=== PATIENT | female | born 1975 | race Caucasian/White ===

== ENCOUNTER 2018-12-05 01:46 | Observation (INO) ==
[2018-12-05] MEDS ORDERED: LACTATED RINGERS 1,000 ML IV ONE ×2 (02:11→04:18)
[2018-12-05] MEDS ORDERED: ONDANSETRON 4 MG/2 ML VIAL IV ONE (02:21)
--- NOTE | 2018-12-05 02:24 | Emergency Department Note ---
Abdominal Pain HPI - General Chief Complaint: Abdominal Pain Stated Complaint: abd pain Time Seen by Provider: 12/05/18 02:10 Mode of arrival: ambulatory - History of Present Illness HPI Narrative: Patient reports onset of right lower quadrant pain about 24 hours ago. Initially started in the periumbilical area moved down to the right lower quadrant. He felt cold pretty much all day Thursday was laying in bed pain gradually got worse and worse cyst and stay pain in the right lower quadrant associated with nausea, several episodes of vomiting, 3 loose stools during the day. No history of similar pain. Last normal menstrual period was 2 weeks ago. Patient denies . Has been regular on herperiods. No chest pain no shortness of breath no cough no other family members ill. History of previous 1. History of sciatica for which she takes meloxicam as well as a muscle relaxant at bedtime. Has been taking anti-inflammatories for about 3-4 years. History of morbid obesity. History of depression. History of sciatica. Status post . No drugs or alcohol use MD Complaint: abdominal pain Quality: sharp, burning Migration to: RLQ, other (radiating to the back) Improves with: nothing Worsens with: movement Associated symptoms: Reports: nausea, vomiting, diarrhea - Related Data LMP (females 10-50): 3 weeks Allergies Allergy/AdvReac Type Severity Reaction Status Date / Time No Known Drug Allergies Allergy Unverified 12/05/18 01:49 Review of Systems All systems ED: reviewed and negative except as stated. Constitutional: Reports: chills. 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 Absent: scleral icterus ENT: Present: normal exam, normal oropharynx, mucous membranes moist, TM's normal bilaterally Neck: Present: normal inspection, full ROM, trachea midline. Absent: tenderness Chest: Present: normal inspection, symmetric chest wall rise Respiratory: Present: normal lung sounds bilaterally. Absent: respiratory distress, rales/crackles Cardiovascular: Present: regular rate, normal rhythm, normal heart sounds Abdominal: Present: soft, tenderness, guarding, rebound, hypoactive bowel sounds. Absent: rigidity Abdominal tenderness: Present: RLQ, moderate Extremities: Present: normal inspection, full ROM. Absent: tenderness Back: Present: normal inspection, other (low back pain which is chronic). Absent: CVA tenderness (R), CVA tenderness (L), paraspinal tenderness, straight leg raise (R), straight leg raise (L) Neurological: Present: alert, oriented X3, CN II-XII intact Psychiatric: Present: normal affect Skin: Present: warm, dry, normal color. Absent: rash Course Vital Signs Temperature 98.0 F 12/05/18 01:46 Pulse Rate 109 H 12/05/18 01:46 Respiratory Rate 20 12/05/18 01:46 Blood Pressure 159/104 12/05/18 01:46 Pulse Oximetry (%) 97 12/05/18 01:46 Temperature 98.0 F 12/05/18 01:46 Pulse Rate 89 12/05/18 03:55 Respiratory Rate 20 12/05/18 01:46 Blood Pressure 121/64 12/05/18 03:47 Pulse Oximetry (%) 98 12/05/18 03:55 Abdominal Pain - MDM Narrative Medical decision making narrative: CAT scan reviewed, findings discussed with Dr. Escamilla, he recommended hospitalization, starting her on antibiotics. Keeping her nothing by mouth and he will mobilize the operating team., Is planning on doing surgery, he is aware of her condition and situation as well as radiology findings. There is suspicion of rupture on the CT scan with the inflammatory stranding around the appendix. Also appendicolith noted. - Lab Data Lab results reviewed: Yes I reviewed the patient's lab results. Result diagrams: 12/05/18 01:51 12/05/18 01:51 Lab Results 09/15/19 09/15/19 09/15/19 Range/Units 01:51 01:51 02:10 WBC 14.2 H (4.5-11.0) K/mcL RBC 4.98 (4.00-5.20) M/mcL Hgb 15.2 H (12.0-15.0) g/dL Hct 45.3 (36.0-48.0) % MCV 91.0 (80.0-100.0) fL MCH 30.5 (26.0-34.0) pg MCHC 33.5 (31.0-36.0) g/dL RDW 13.7 (11.5-14.5) % Plt Count 282 (140-440) K/mcL MPV 8.6 (7.4-10.4) fL Gran % 80.5 H (38.0-78.0) % Lymph % (Auto) 13.1 L (15.5-49.0) % [place] % (Auto) 6.0 (1.0-12.0) % Eos % (Auto) 0.3 (0.0-7.0) % Baso % (Auto) 0.1 (0.0-2.0) % Gran # 11.5 H (1.8-8.0) K/mcL Lymph # (Auto) 1.9 (1.5-4.8) K/mcL [place] # (Auto) 0.8 (0.1-0.9) K/mcL Eos # (Auto) 0 (0.0-0.7) K/mcL Baso # (Auto) 0 (0.0-0.3) K/mcL Sodium 139 (133-145) mmol/L Potassium 3.9 (3.3-5.1) mmol/L Chloride 104 (96-108) mmol/L Carbon Dioxide 24 (22-30) mmol/L Anion Gap 11.0 (8-16) BUN 6 (6-20) mg/dl Creatinine 0.7 (0.6-1.1) mg/dl GFR Calculation 107 Glucose 128 H (70-105) mg/dL Calcium 8.8 (8.6-10.4) mg/dl Total Bilirubin 0.5 (0.0-1.0) mg/dL AST 10 (0-37) U/l ALT 11 (0-40) U/l Alkaline Phosphatase 52 (39-117) U/L C-Reactive Protein 6.1 H (0.0-0.8) mg/dl Total Protein 7.0 (5.9-8.4) gm/dL Albumin 4.0 (3.2-5.2) gm/dL Globulin 3.0 (2.2-3.7) gm/dL Albumin/Globulin Ratio 1.3 (1.0-2.3) Urine Color Urine Appearance Urine pH (5.0-9.0) Ur Specific [place] (1.000-1.035) Urine Protein (NEG) mg/dL Urine Glucose (UA) (NEG) mg/dL Urine Ketones (NEG) mg/dL Urine Occult Blood (<0.03) mg/dL Urine Nitrate (NEG) Urine Bilirubin (NEG) mg/dL Urine Urobilinogen (NEG) mg/dL Ur Leukocyte Esterase (NEG) /uL Urine RBC (0-1) /hpf Urine WBC (0-4) /hpf Ur Squamous Epith Cells (0-4) /hpf Urine Bacteria (0) /hpf Urine Mucus (0) /hpf Ur Culture Indicated? 12/05/18 Range/Units 02:33 WBC (4.5-11.0) K/mcL RBC (4.00-5.20) M/mcL Hgb (12.0-15.0) g/dL Hct (36.0-48.0) % MCV (80.0-100.0) fL MCH (26.0-34.0) pg MCHC (31.0-36.0) g/dL RDW (11.5-14.5) % Plt Count (140-440) K/mcL MPV (7.4-10.4) fL Gran % (38.0-78.0) % Lymph % (Auto) (15.5-49.0) % [place] % (Auto) (1.0-12.0) % Eos % (Auto) (0.0-7.0) % Baso % (Auto) (0.0-2.0) % Gran # (1.8-8.0) K/mcL Lymph # (Auto) (1.5-4.8) K/mcL [place] # (Auto) (0.1-0.9) K/mcL Eos # (Auto) (0.0-0.7) K/mcL Baso # (Auto) (0.0-0.3) K/mcL Sodium (133-145) mmol/L Potassium (3.3-5.1) mmol/L Chloride (96-108) mmol/L Carbon Dioxide (22-30) mmol/L Anion Gap (8-16) BUN (6-20) mg/dl Creatinine (0.6-1.1) mg/dl GFR Calculation Glucose (70-105) mg/dL Calcium (8.6-10.4) mg/dl Total Bilirubin (0.0-1.0) mg/dL AST (0-37) U/l ALT (0-40) U/l Alkaline Phosphatase (39-117) U/L C-Reactive Protein (0.0-0.8) mg/dl Total Protein (5.9-8.4) gm/dL Albumin (3.2-5.2) gm/dL Globulin (2.2-3.7) gm/dL Albumin/Globulin Ratio (1.0-2.3) Urine Color Yellow Urine Appearance Hazy Urine pH 7.0 (5.0-9.0) Ur Specific [place] 1.013 (1.000-1.035) Urine Protein Neg (NEG) mg/dL Urine Glucose (UA) Negative (NEG) mg/dL Urine Ketones 5/tr A (NEG) mg/dL Urine Occult Blood 0.03 A (<0.03) mg/dL Urine Nitrate Neg (NEG) Urine Bilirubin Neg (NEG) mg/dL Urine Urobilinogen Neg (NEG) mg/dL Ur Leukocyte Esterase Neg (NEG) /uL Urine RBC 1 (0-1) /hpf Urine WBC 3 (0-4) /hpf Ur Squamous Epith Cells 8 H (0-4) /hpf Urine Bacteria 0 (0) /hpf Urine Mucus Few (0) /hpf Ur Culture Indicated? No - Radiology Data Radiology results reviewed: Yes I reviewed the patient's radiology results. Disposition Pt seen by SENIOR RUBY DEVELOPER/PA only: No Clinical Impression: Acute appendicitis, Abdominal pain Disposition: Xfer As Outpt/Obs ([facility]) Condition: Fair
[2018-12-05 02:33] LABS: Basophils # (Auto) 0 K/mcL (0.0-0.3); Basophils % (Auto) 0.1 % (0.0-2.0); Eosinophils # (Auto) 0 K/mcL (0.0-0.7); Eosinophils % (Auto) 0.3 % (0.0-7.0); Granulocytes % (Auto) 80.5 % (38.0-78.0); Hematocrit 45.3 % (36.0-48.0); Hemoglobin 15.2 g/dL (12.0-15.0); Lymphocytes # (Auto) 1.9 K/mcL (1.5-4.8); Lymphocytes % (Auto) 13.1 % (15.5-49.0); Mean Corpuscular HGB Conc 33.5 g/dL (31.0-36.0); Mean Platelet Volume 8.6 fL (7.4-10.4); Monocytes # (Auto) 0.8 K/mcL (0.1-0.9); Platelet Count 282 K/mcL (140-440); RBC 4.98 M/mcL (4.00-5.20); Red Cell Distribution Width 13.7 % (11.5-14.5); WBC 14.2 K/mcL (4.5-11.0)
[2018-12-05] MEDS: HYDROmorphone 2 MG/ML VIAL IV PRN ×8 (02:34→05:18)
[2018-12-05 02:52] LABS: ALT/SGPT 11 U/l (0-40); AST/SGOT 10 U/l (0-37); Albumin/Globulin Ratio 1.3 (1.0-2.3); Alkaline Phosphatase 52 U/L (39-117); Bilirubin,Total 0.5 mg/dL (0.0-1.0); Blood Urea Nitrogen 6 mg/dl (6-20); Calcium 8.8 mg/dl (8.6-10.4); Carbon Dioxide 24 mmol/L (22-30); Chloride 104 mmol/L (96-108); Glomerular Filtration Rate 107; Glucose 128 mg/dL (70-105)
[2018-12-05 03:48] LABS: Appearance,Urine HAZY; Bacteria,Urine 0 /hpf (0); Bilirubin,Urine NEG (NEG); Color,Urine YELLOW; Culture Indicated,Urine NO; Glucose,Urine (UA) NEGATIVE (NEG); Ketones,Urine 5/TR mg/dL (NEG); Leukocyte Esterase,Urine NEG /uL (NEG); Mucus,Urine FEW /hpf (0); Nitrate,Urine NEG (NEG); Protein,Urine NEG (NEG); Specific Gravity,Urine 1.013 (1.000-1.035); Urine Blood 0.03 mg/dL (<0.03); Urine RBC 1 /hpf (0-1); Urine Squamous Epithelial Cell 8 /hpf (0-4); Urine WBC 3 /hpf (0-4); Urobilinogen,Urine NEG (NEG)
[2018-12-05] MEDS ORDERED: PIPERACILLIN SODIUM/TAZOBACTAM 4.5 GM in DEXTROSE 5% IN WATER 50 ML IV ONE (04:07)
[2018-12-05] MEDS ORDERED: IPRATROPIUM/ALBUTEROL 3 ML AMPUL.NEB NEB ONE (04:21)
[2018-12-05] MEDS ORDERED: ONDANSETRON 4 MG/2 ML VIAL IV PRN (04:21)
[2018-12-05] MEDS ORDERED: DEXTROSE 5%-1/2NS 1,000 ML IV SCH (04:30)
--- NOTE | 2018-12-05 06:59 | Cat Scan Report ---
CLINICAL INFORMATION: Right lower quadrant pain COMPARISON: None. TECHNIQUE: Following enteric contrast, 80 cc of Isovue-370 were injected intravenously, and 60 seconds later, 0.625 mm helical slices were obtained from the mid heart through the subtrochanteric regions. Following reconstruction, 2.5 mm sagittal, coronal and axial reformatted images were processed and reviewed at bone, lung and soft tissue windows. Five minutes later, 0.625 mm helical slices were obtained from the mid heart through the kidneys and viewed at soft tissue windows.The exam was performed using radiation dose optimization techniques including, but not limited to, automated exposure control, adjustment of the mA and/or kV according to patient size and use of iterative reconstruction technique. FINDINGS: The lung bases show no abnormality - no effusion. Small hiatal hernia noted. The visualized heart is grossly normal. Abdominal images show the liver is normal in size configuration and attenuation without focal lesion. There are five stones in the gallbladder ranging up to 14 mm. The gallbladder wall is normal thickness and there is no pericholecystic fluid or other evidence of cholecystitis. The intrahepatic and extrahepatic bile ducts are normal caliber: CBD is 5 mm. Both kidneys, adrenal glands, spleen, pancreas, and aorta, including aortic branches, are normal in size, configuration and attenuation without focal lesion. Pelvic images show an anteflexed uterus which is moderately enlarged: 12 x 5.8 cm. No focal lesions. Both ovaries are normal. Urinary bladder is unremarkable. The appendix, located in the inferior pericecal region, is dilated with diameter 12 mm. There is also wall thickening and moderate phlegmon in the periappendiceal fat. A 12 mm appendicolith seen within the appendix. No abscess . Few sigmoid diverticuli, noted but the remaining colon, small bowel and stomach are normal. There is no free air or adenopathy. A 5 cm periumbilical hernia consists only of mesenteric fat. Bone windows show no osseous abnormality. At L5-S1, moderate broad disc protrusion with left-sided asymmetry and facet arthropathy results in severe left IV foraminal and left lateral recess narrowing impinging the exiting left L5 and descending left S1 nerve roots. IMPRESSION: 1. Appendicitis. The appendix is located inferior pericecal region. No abscess or other complication. 2. Moderate uterine enlargement. The most common cause for this finding is adenomyosis. 3. Cholelithiasis 4. 5 cm periumbilical hernia containing only mesenteric fat 5. L5-S1: Moderate broad disc protrusion left-sided asymmetry and facet arthropathy resulting in severe left IV foraminal and left lateral recess narrowing impinging the exiting left L5 and descending left S1 nerve roots. (Degenerative stenosis is commonly seen in patients who are typically asymptomatic.) 6. Small hiatal hernia Interpreted and Authenticated by: Alphonso Rizo 12/05/18
--- NOTE | 2018-12-05 08:34 | General Surg History&Physical ---
History of Present Illness Patient information: Note initiated : 12/05/18 at 8:32 am Service Date, if different from initiated Date: [] Patient: Cindy Frazier a 43 y/o F admitted on 12/05/18 for abd pain. Chief Complaint: [] HPI: Ms. Frazier is a 43 year old F admitted with acute appendicitis. The patient has a 24-hour history of right lower quadrant pain. This has been associated with recurrent episodes of nausea with vomiting. She sought attention in the emergency room and was noted to have a very tender abdomen in the right lower quadrant with guarding. CT scan confirms enlarged dilated edematous appendix with extensive periappendiceal tissue stranding. There is no evidence of abscess and there is no evidence of free air. Review of Systems All systems PM: reviewed and no additional remarkable complaints except as stated (negative except for low back pain) Past History Past medical history: No chronic medical illness Past surgical history: 1 16 years ago Past family history: No chronic medical conditions noted Past social history: Smokes 1 pack per day Denies alcohol use Denies drug use Medications and Allergies Allergies Allergy/AdvReac Type Severity Reaction Status Date / Time No Known Drug Allergies Allergy Unverified 12/05/18 01:49 Exam Temp Pulse Resp BP Pulse Ox 98.4 F 89 20 120/73 95 12/05/18 07:10 12/05/18 05:19 12/05/18 07:10 12/05/18 07:10 12/05/18 07:10 - General physical appearance well developed, well nourished, moderate pain, obese (morbid obesity) - Eyes PERRL, normal ocular movement - ENT normal pinna, normal nares, normal mucosa, no hearing loss, no congestion - Head Head exam IM: Present: atraumatic, normocephalic - Neck no masses, no bruits, trachea midline, no lymphadenopathy, no venous distension - Cardiovascular Cardiovascular exam IM: Present: normal rate and rhythm - Respiratory normal expansion, normal respiratory effort, clear to auscultation - Abdomen Abdomen: Present: soft, tender ( tinnitus and right lower quadrant with guarding), bowel sounds, distended ( large pannus) Hernia: Present: none, umbilical ( nonreducible umbilical hernia) - Genitourinary Present: normal external genitalia - Integumentary Present: no rash, no growths, no abnormal pigmentation - Neurologic Present: normal coordination, normal sensation - Musculoskeletal Present: normal gait, normal posture - Psychiatric Present: oriented to time, oriented to person, oriented to place, speech is normal, memory intact Assessment and Plan (1) Acute appendicitis Patient has appendicitis but based on her size alone it is not safe for her to be operated on at this facility. We do not have adequate OR instrumentation and there is not adequate community support specialist if she should have perioperative complications. She is therefore advised that she will be transferred to a high level of care where these personnel and facilities are available. The patient is clinically stable at this time. Status: Acute Qualifiers: Acute appendicitis type: with localized peritonitis Appendicitis gangrene presence: without gangrene Appendicitis perforation presence: unspecified whether perforation present Appendicitis abscess presence: without abscess Qualified Code(s): K35.30 - Acute appendicitis with localized peritonitis, without perforation or gangrene (2) Morbid obesity with BMI of 60.0-69.9, adult Status: Acute
== END 2018-12-05 10:11 | disposition short-term general hospital (02) ==
LOC: MEDSUR 01:46 → ED 01:46 → MEDSUR 05:20
PROVIDERS: ADMIT Family Medicine Adult Medicine; ATTEND Family Medicine Adult Medicine